=== PATIENT | female | born 1990 | race Caucasian/White ===

== ENCOUNTER 2016-05-27 12:20 | Emergency (ER) | payer MEDICAID ==
[~2016-05-27] VITALS: Wt 81.8 kg
[2016-05-27] MEDS ORDERED: ONDANSETRON 4 MG INJ IV STA (13:17)
[2016-05-27] MEDS ORDERED: morphine 2 MG INJ IV ONE (13:30)
[2016-05-27 13:50] LABS: ADD UMIC YES; URINE BILIRUBIN (Dip) NEGATIVE (NEGATIVE); URINE BLOOD (Dip) TRACE (NEGATIVE); URINE COLOR LT. YELLOW (YELLOW); URINE GLUCOSE (Dip) NEGATIVE (NEGATIVE); URINE KETONES (Dip) 15 (NEGATIVE); URINE LEUKOCYTE ESTERASE (Dip) NEGATIVE (NEGATIVE); URINE NITRITE (Dip) NEGATIVE (NEGATIVE); URINE TOTAL PROTEIN (Dip) NEGATIVE (NEGATIVE); URINE UROBILINOGEN (Dip) 0.2 E.U./dL (0.1-1.0)
[2016-05-27 13:54] LABS: BASOPHILS % 0.4 % (0.0-2.0); EOSINOPHILS # 0.1 10^3/ul (0.0-0.5); EOSINOPHILS % 1.1 % (0.0-7.0); HEMATOCRIT 41.5 % (37.0-47.0); LYMPHOCYTES # 1.7 10^3/ul (0.8-2.9); LYMPHOCYTES % 24.3 % (15.0-51.0); MEAN CORPUSCULAR HEMOGLOBIN 28.5 pg (29.0-33.0); MEAN CORPUSCULAR HGB CONC 33.8 g/dl (32.0-37.0); MEAN CORPUSCULAR VOLUME 84.6 fl (82.0-101.0); MEAN PLATELET VOLUME 8.3 fl (7.4-10.4); MONOCYTE # 0.4 10^3/ul (0.3-0.9); MONOCYTES % 6.1 % (0.0-11.0); NEUTROPHIL # 4.8 10^3/ul (1.6-7.5); NEUTROPHILS % 68.1 % (39.0-77.0); PLATELET COUNT 342 10^3/UL (140-440); RED BLOOD COUNT 4.91 10^6/ul (4.20-5.40); RED CELL DISTRIBUTION WIDTH 12.9 % (11.5-14.5)
[2016-05-27 13:55] LABS: CONDITION 1
[2016-05-27 14:03] LABS: ALBUMIN 4.4 g/dl (3.3-4.9)
[2016-05-27 14:04] LABS: POTASSIUM 4.2 mmol/L (3.5-5.1)
[2016-05-27 14:06] LABS: ALBUMIN/GLOBULIN RATIO 1.33; BILIRUBIN,INDIRECT 0.4 mg/dl (0-1.1); BILIRUBIN,TOTAL 0.4 mg/dl (0.2-1.3); CREATININE 0.57 mg/dl (0.44-1.00); TOTAL PROTEIN 7.7 g/dl (6.1-8.1)
[2016-05-27 14:07] LABS: CALCIUM 9.3 mg/dl (8.4-10.2)
[2016-05-27 14:09] LABS: BACTERIA,URINE MODERATE; SQUAMOUS EPITHELIAL CELL,UR MODERATE; URINE RBCS 0-2 /HPF (0)
[2016-05-27] MEDS ORDERED: SOD CHLORIDE 0.9% 100 ML ONE (15:09)
[2016-05-27] MEDS ORDERED: IOHEXOL 300MG/ML 150 ML BTL ONE (15:09)
--- NOTE | 2016-05-27 15:28 | RADRPT ---
PROCEDURE: CT abdomen and pelvis with intravenous contrast. CLINICAL INDICATION: RLQ pain TECHNIQUE: Following intravenous contrast, spiral CT of the abdomen pelvis was performed and is re constructed at 2.5 mm contiguous axial intervals from the dome of the diaphragm to the inferior pubi c rami. Computer reformatted coronal and sagittal images are included. CT D I 16 millicurie Dose 925 millicurie per centimeter COMPARISON: None. FINDINGS: Lung bases are clear of any infiltrate or mass. There is no effusion. The liver is of normal size, contour and attenuation with no mass or intrahepatic ductal dilatation. No gallstones are present. No splenic, adrenal or pancreatic abnormalities present. Kidneys excrete contrast symmetrically. No hydronephrosis, calculus or masses present. Ureters are of normal course and caliber with no stone. No bladder mass or stone is present. Uterus and ovaries are normal. No bowel mass or obstruction is seen. The appendix is normal. There is no phlegmon, ascites or pneu moperitoneum. No aneurysm is detected. There is no adenopathy. The osseous structures are intact. IMPRESSION: No evidence of urolithiasis, obstructive uropathy, diverticulitis or appendicitis. .Raymond Bhatia MD, MD Date Time Electronically viewed and signed by .Raymond Bhatia MD, on 05/27/2016 15:27 .A/
--- NOTE | 2016-05-27 15:49 | ERD ---
ER Documentation Chief Complaint Date/Time DATE: 05/27/16 TIME: 15:47 Chief Complaint rlq abd pain since last night. no dysuria. nausea no vomiting. HPI 25-year-old female comes in the right lower quadrant abdominal pain that started last night. It is localized in the right lower quadrant, with no pelvic pain or vaginal bleeding. She has not had any fevers or vomiting but reports mild nausea. No urinary complaints. ROS All systems reviewed and are negative except as per history of present illness. PMhx/Soc Medical and Surgical Hx: pt denies Medical Hx, pt denies Surgical Hx History of Surgery: No Anesthesia Reaction: No Hx Neurological Disorder: No Hx Respiratory Disorders: No Hx Cardiac Disorders: No Hx Psychiatric Problems: No Hx Miscellaneous Medical Probl: No Hx Alcohol Use: Yes (socially) Hx Substance Use: No Hx Tobacco Use: No Smoking Status: Never smoker Physical Exam Vitals Vital Signs Date Time Temp Pulse Resp B/P Pulse Ox O2 Delivery O2 Flow Rate FiO2 05/27/16 12:23 99.8 85 20 150/95 100 Physical Exam General: Well-developed, well-nourished. The patient appears in no acute distress. HEENT: Head is normocephalic, atraumatic. No scleral icterus. Pupils are equal , round, and reactive. Oral mucous membranes are moist. No pharyngeal erythema. Neck: Supple. Nontender. Lungs: Clear to auscultation. Normal air movement. Heart: Regular rate and rhythm. S1 and S2 are normal. No murmurs, gallops, or rubs. Abdomen: Soft, tender in the right lower quadrant, without rebound pain nondistended. Bowel sounds are normoactive. No masses. No peritoneal signs or guarding Extremities: No clubbing or cyanosis. Normal pulses. Moving extremities x 4. No weakness. Neurologic: Alert and oriented 3. No focal deficits. Skin: Normal turgor. No rash or lesions. Result Diagram: 05/27/16 1340 05/27/16 1340 Results 24 hrs Laboratory Tests Test 05/27/16 13:40 Alanine Aminotransferase (ALT/SGPT) 26IU/L Albumin 4.4g/dl Albumin/Globulin Ratio 1.33 Alkaline Phosphatase 57IU/L Anion Gap 16 Aspartate Amino Transf (AST/SGOT) 20IU/L Basophils # 0.010^3/ul Basophils % 0.4% Blood Morphology Comment Blood Urea Nitrogen 8mg/dl Calcium Level 9.3mg/dl Carbon Dioxide Level 28mmol/L Chloride Level 103mmol/L Creatinine 0.57mg/dl Direct Bilirubin 0.00mg/dl Eosinophils # 0.110^3/ul Eosinophils % 1.1% Globulin 3.30g/dl Glucose Level 98mg/dl Hematocrit 41.5% Hemoglobin 14.0g/dl Indirect Bilirubin 0.4mg/dl Lipase 125U/L Lymphocytes # 1.710^3/ul Lymphocytes % 24.3% Mean Corpuscular Hemoglobin 28.5pg Mean Corpuscular Hemoglobin Concent 33.8g/dl Mean Corpuscular Volume 84.6fl Mean Platelet Volume 8.3fl Monocytes # 0.410^3/ul Monocytes % 6.1% Neutrophils # 4.810^3/ul Neutrophils % 68.1% Nucleated Red Blood Cells # 0.010^3/ul Nucleated Red Blood Cells % 0.0/100WBC Platelet Count 45102^3/UL Potassium Level 4.2mmol/L Red Blood Count 4.9110^6/ul Red Cell Distribution Width 12.9% Sodium Level 143mmol/L Total Bilirubin 0.4mg/dl Total Protein 7.7g/dl Urine Bacteria MODERATE Urine Bilirubin NEGATIVE Urine Clarity HAZY Urine Color LT. YELLOW Urine Glucose NEGATIVE% Urine Hemoglobin TRACE Urine Ketones 15 Urine Leukocyte Esterase NEGATIVE Urine Microscopic RBC 0-2/HPF Urine Microscopic WBC NONE SEEN/HPF Urine Nitrite NEGATIVE Urine Specific [place] 1.025 Urine Squamous Epithelial Cells MODERATE Urine Total Protein NEGATIVE Urine Urobilinogen 0.2 E.U./dL Urine pH 6.0 White Blood Count 7.010^3/ul Current Medications Medications (Trade) Dose Ordered Sig/Maxine Route PRN Reason Start Time Stop Time Status Last Admin Dose Admin Morphine Sulfate (morphine) 4 mg ONCE ONCE IV 05/27/16 13:30 05/27/16 13:31 05/27/16 13:36 Ondansetron HCl (Zofran Inj) 4 mg ONCE STAT IV 05/27/16 13:17 05/27/16 13:18 05/27/16 13:36 IV Flush 10 ml 10 ml STK-MED ONCE .ROUTE 05/27/16 15:09 05/27/16 15:10 DC 05/27/16 15:17 Sodium Chloride (NS) 100 ml @ ud STK-MED ONCE .ROUTE 05/27/16 15:09 05/27/16 15:10 DC 05/27/16 15:17 Iohexol (Omnipaque 300mg/ ml) 150 ml STK-MED ONCE .ROUTE 05/27/16 15:09 05/27/16 15:10 DC 05/27/16 15:17 PROCEDURE: CT abdomen and pelvis with intravenous contrast. CLINICAL INDICATION: RLQ pain TECHNIQUE: Following intravenous contrast, spiral CT of the abdomen pelvis was performed and is reconstructed at 2.5 mm contiguous axial intervals from the dome of the diaphragm to the inferior pubic rami. Computer reformatted coronal and sagittal images are included. CT D I 16 millicurie Dose 925 millicurie per centimeter COMPARISON: None. FINDINGS: Lung bases are clear of any infiltrate or mass. There is no effusion. The liver is of normal size, contour and attenuation with no mass or intrahepatic ductal dilatation. No gallstones are present. No splenic, adrenal or pancreatic abnormalities present. Kidneys excrete contrast symmetrically. No hydronephrosis, calculus or masses present. Ureters are of normal course and caliber with no stone. No bladder mass or stone is present. Uterus and ovaries are normal. No bowel mass or obstruction is seen. The appendix is normal. There is no phlegmon, ascites or pneumoperitoneum. No aneurysm is detected. There is no adenopathy. The osseous structures are intact. IMPRESSION: No evidence of urolithiasis, obstructive uropathy, diverticulitis or appendicitis. .Raymond Bhatia MD, Date Time Electronically viewed and signed by .Raymond Bhatia MD, on 05/27/2016 15: 27 Procedures/[facility] 25 year old female comes in with right lower quadrant abdominal pain that started last night, patient's workup today was negative for acute appendicitis. CT abdomen and pelvis with IV contrast shows no evidence of appendicitis, urolithiasis, diverticulitis or masses. She does not have any leukocytosis, vomiting, no peritoneal signs. I did explain that this patient's workup does not entirely rule out appendicitis, she may have an early appendicitis and needs to recheck in 8-12 hours. At this time I do not have a high suspicion for no ovarian process, including torsion or tubo-ovarian abscesses her pain is in the right lower quadrant without any pelvic pain. Departure Diagnosis: Primary Impression: Abdominal pain Condition: Good Patient Instructions: Abdominal Pain Additional Instructions: Recheck abdominal pain in 8-12 hours. Return sooner for any worsening or new symptoms including fever. DOROTHEA ORDAZ PA-C May 27, 2016 15:49
== END 2016-05-27 16:07 | disposition home or self-care (01) ==
LOC: FTE 12:20
DX: R10.31 Right lower quadrant pain (principal)
CPT/HCPCS: 36415; 74177; 80053; 81001; 83690; 85025; 96374; 96375; J2270; J2405; Q9967; Z7502; Z7610; 81003